=== PATIENT | male | born 1980 | race Caucasian/White ===

== ENCOUNTER 2020-03-22 10:19 | Emergency (ER) | payer OTHER ==
[~2020-03-22] VITALS: Ht 180.3 cm; Wt 100.0 kg
[2020-03-22 10:28] VITALS: BP 126/68
[2020-03-22] MEDS ORDERED: BACDS PO (11:01)
[2020-03-22] MEDS ORDERED: CEPH250T PO (11:01)
== END 2020-03-22 11:11 | disposition home or self-care (01) ==
LOC: ER 10:20
DX: L03.113 Cellulitis of right upper limb (principal); Z79.2 Long term (current) use of antibiotics; Z79.899 Other long term (current) drug therapy
CPT/HCPCS: 99283